=== PATIENT | female | born 2000 | race African-American/Black ===

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

== ENCOUNTER 2020-11-12 11:05 | Emergency (ER) | payer OTHER ==
[~2020-11-12 11:05] MED LIST: BENTYL10 MG PO; METRONIDAZOLE500 MG PO; MOTRIN600 MG PO; MYLICON80 MG PO; NAPROXEN500 MG PO; TYLENOL #31 EACH PO
[2020-11-12 12:09] LABS: BILIRUBIN NEGATIVE (NEGATIVE); BLOOD NEGATIVE Ery/uL (NEGATIVE); CLARITY CLEAR (CLEAR); COLOR YELLOW (YELLOW); GLUCOSE (U) NORMAL (NORMAL); LEUKOCYTES NEGATIVE Leu/uL (NEGATIVE); NITRITE NEGATIVE (NEGATIVE); PROTEIN NEGATIVE (NEGATIVE); SPECIFIC GRAVITY 1.025 (1.001-1.030); UROBILINOGEN 0.2 mg/dL (0.2-1.0)
[2020-11-12 12:19] LABS: BASOPHIL 0.6 % (0-2); EOSINOPHIL 1.4 % (0-5); HCT 38.6 % (37.0-47.0); HGB 13.1 g/dl (12.5-16.0); LYMPHOCYTE 31.7 % (15-48); MCH 31.2 pg (25.0-31.0); MCHC 33.9 g/dL (32.0-36.0); MCV 91.9 fL (78.0-100.0); MONOCYTE 5.8 % (0-12); MPV 10.9 fL (6.0-9.5); NEUTROPHIL 60.3 % (41-80); NRBC 0; PLT 222 K/uL (150-400); WBC 6.5 K/uL (4.0-10.5)
[2020-11-12 12:42] LABS: BUN/CREAT RATIO (CALC) 18.5 RATIO; CREATININE 0.54 mg/dL (0.51-0.95); POTASSIUM 3.7 mmol/L (3.5-5.1)
== END 2020-11-12 14:16 | disposition home or self-care (01) ==
LOC: FER 11:05
PROVIDERS: Emergency Medicine
DX: O99.891 Other specified diseases and conditions complicating pregnancy (principal); R10.2 Pelvic and perineal pain; Z3A.01 Less than 8 weeks gestation of pregnancy
CPT/HCPCS: 36415; 76801; 80048; 81003; 85025